=== PATIENT | female | born 1955 | race American Indian/Alaskan Native ===

== ENCOUNTER 2019-09-28 12:59 | Outpatient (CLI) | payer MEDICARE ==
--- NOTE | 2019-09-28 14:25 | Ultrasound Report ---
COMPLETE RIGHT BREAST ULTRASOUND HISTORY: 2 incidents of right bloody nipple discharge several months ago. Prior imaging has been nega tive. COMPARISON: Right breast ultrasound 06/28/2019 and bilateral breast MRI 07/11/2019 from [facility] FINDINGS: Complete sonographic evaluation including imaging of the four quadrants and subareolar aspe ct of the right breast demonstrates moderate retroareolar duct ectasia at 9:00 but no mass identified within the duct. No mass, cyst or suspicious shadowing. IMPRESSION: Probably benign duct ectasia and no suspicious finding. Recommend 6 month follow-up right mammogram and right breast ultrasound. BI-RADS Category 3: Probably benign. Signer Name: Govind Navarro MD Signed: 09/28/2019 2:21 PM Workstation Name: [id number]
== END 2019-09-28 13:00 | disposition home or self-care (01) ==
LOC: SPVWC 12:59
PROVIDERS: ATTEND Surgery
DX: N64.52 Nipple discharge (principal)